=== PATIENT | male | born 1980 | race Caucasian/White ===

== ENCOUNTER 2024-02-15 15:06 | Inpatient (IN) | payer MEDICAID ==
[~2024-02-15] VITALS: Ht 175.2 cm; Wt 65.3 kg
[2024-02-15 15:21] VITALS: BP 109/80
[2024-02-15 15:49] LABS: HEMATOCRIT 40.7 % (42.0-52.0); MEAN CELL VOLUME 99.8 fl (80.0-94.0); MEAN CORPUSCULAR HGB 30.1 pg (27.0-31.0); MEAN CORPUSCULAR HGB CONC 30.2 g/dl (33.0-37.0); MEAN PLATELET VOLUME 9.5 fl (9.6-12.3); PLATELET COUNT AUTOMATED 272 10*3/uL (130-400); RED BLOOD COUNT 4.08 10*6/uL (4.50-5.90); RED CELL DISTRI WIDTH 16.4 % (0-14.5); WHITE BLOOD COUNT 21.1 10*3/uL (4.8-10.8)
[2024-02-15 15:52] LABS: MANUAL DIFF REFLEX YES
[2024-02-15 15:58] LABS: ACT PARTIAL THROMBO TIME 21.4 SECONDS (20.0-32.1)
[2024-02-15 16:00] LABS: ALKALINE PHOSPHATASE 288 U/L (46-116); BUN 39 mg/dl (9-23); CHLORIDE 96 mmol/L (98-107); SGPT/ALT 89 U/L (5-49); TOTAL PROTEIN 9.3 gm/dL (6.0-8.0)
[2024-02-15 16:17] LABS: PLATELET SUFFICIENCY NORMAL (NORMAL); TOTAL CELLS COUNTED 100 #CELLS
[2024-02-15 16:19] LABS: ROULEAUX SLIGHT
[2024-02-15 16:31] VITALS: BP 117/83
[2024-02-15] MEDS ORDERED: Lactated Ringer's Solution 1,000 ML IV ONE (16:50)
[2024-02-15] MEDS ORDERED: Ceftriaxone Sodium 1 GM/10 ML SYR IV ONE (16:50)
[2024-02-15] MEDS ORDERED: Vancomycin Hydrochloride 1,000 MG VIAL IV ONE (16:50)
[2024-02-15] MEDS ORDERED: Piperacillin Sodium/Tazobact 100 ML IV ONE (16:50)
[2024-02-15 17:00] LABS: BILIRUBIN Negative (Negative); BLOOD 3+ (Negative); CLARITY Cloudy (Clear); COLOR Yellow (Yellow); GLUCOSE Negative (Negative); KETONE Negative (Negative); LEUKO ESTERASE 2+ (Negative); NITRITE Negative (Negative); SPECIFIC GRAVITY 1.025 (1.001-1.030)
[2024-02-15] MEDS ORDERED: Vancomycin Hydrochloride 250 ML IV ONE (17:05)
[2024-02-15 17:13] LABS: BACTERIA 2+; RBC 41-50 rbc/hpf (0-2); WBC 31-40 wbc/hpf (0-5)
[2024-02-15] MEDS ORDERED: Albuterol Sulf/Ipratropium 3 ML VIAL NEB SCH (17:30)
[2024-02-15] MEDS ORDERED: MORPHINE Sulfate 2 MG/ML SYR IV PRN (17:30)
[2024-02-15] MEDS ORDERED: DEXTROSE 10 % IN WATER 250 ML IV PRN (17:40)
[2024-02-15] MEDS ORDERED: IBUPROFEN 100 MG/5 ML UDC PEG PRN ×2 (17:40→22:20)
[2024-02-15] MEDS ORDERED: Pantoprazole Sodium 40 MG VIAL IV SCH (17:45)
[2024-02-15] MEDS ORDERED: SODIUM CHLORIDE 0.9% 1,000 ML IV SCH (17:45)
[2024-02-15] MEDS ORDERED: LORazepam 0.5 MG TAB PO PRN (18:00)
[2024-02-15] MEDS ORDERED: Chlorhexidine Gluconate 15 ML MOUTHWASH T SCH (18:00)
[2024-02-15] MEDS ORDERED: Meropenem 1 GM in SODIUM CHLORIDE 0.9% 100 ML IV SCH (18:00)
[2024-02-15] MEDS ORDERED: TOPCARE PAIN R500 MG PEG (18:18)
[2024-02-15] MEDS ORDERED: VENTOLIN 02.5 MG/3 M NEB ×2 (18:21→18:25)
[2024-02-15] MEDS ORDERED: ASPIRIN ADULT L81 M1 PEG (18:25)
[2024-02-15] MEDS ORDERED: ATIVAN0.5 MG PEG (18:27)
[2024-02-15] MEDS ORDERED: BISACODYL10 MG R (18:33)
[2024-02-15] MEDS ORDERED: VIBRAMYCIN HYC100 MG PO (18:34)
[2024-02-15] MEDS ORDERED: ENOXAPARIN30 MG/0.2 SQ (18:34)
[2024-02-15] MEDS ORDERED: GOOD SENSE ACID20 MG PEG (18:36)
[2024-02-15] MEDS ORDERED: IBUPROFEN600 MG PO (18:37)
[2024-02-15] MEDS ORDERED: FLEET ENEMA EX230 M1 R (18:37)
[2024-02-15] MEDS ORDERED: JUVEN PACKET1 EACH PEG (18:38)
[2024-02-15] MEDS ORDERED: KEPPRA500 MG PEG (18:39)
[2024-02-15] MEDS ORDERED: MELATONIN3 MG PEG (18:40)
[2024-02-15] MEDS ORDERED: MILK OF MA400 MG/52 PEG (18:41)
[2024-02-15] MEDS ORDERED: MIRALAX17 GM PEG (18:42)
[2024-02-15] MEDS ORDERED: HYDROCODONE-AC1 EAC1 PEG (18:43)
[2024-02-15] MEDS ORDERED: Peridex 473 ML473 ML PO (18:51)
[2024-02-15] MEDS ORDERED: SENNA8.6 MG PEG (18:52)
[2024-02-15] MEDS ORDERED: SODIUM BICARBO650 MG PEG (18:54)
[2024-02-15 18:55] VITALS: BP 108/73
[2024-02-15] MEDS ORDERED: VIOKACE 10,4401 EACH PEG (18:55)
[2024-02-15] MEDS ORDERED: BISACODYL 10 MG SUPP R PRN (19:20)
[2024-02-15] MEDS ORDERED: Polyethylene Glycol 3350 17 GM PACKET PEG PRN (19:25)
[2024-02-15] MEDS ORDERED: SODIUM BICARBONATE 650 MG TAB PEG PRN (19:25)
[2024-02-15] MEDS ORDERED: Sennosides A and B 8.6 MG TAB PEG PRN (19:25)
[2024-02-15] MEDS ORDERED: Acetaminophen/Hydrocodone 5 MG/325 MG TABLET PO PRN (19:55)
[2024-02-15 20:00] VITALS: BP 99/64
[2024-02-15] MEDS ORDERED: AMYLASE/LIPASE/PROTEASE 12,000 UNITS CAP PO PRN (20:00)
[2024-02-15] MEDS ORDERED: LEVETIRACETAM 500 MG/5 ML UDC PEG SCH (22:00)
[2024-02-15] MEDS ORDERED: FAMOTIDINE 20 MG TAB PEG SCH (22:00)
[2024-02-15] MEDS ORDERED: JUVEN PEG SCH (22:00)
[2024-02-15] MEDS ORDERED: Melatonin 3 MG TABLET PEG SCH (22:00)
[2024-02-15] MEDS ORDERED: ACETAMINOPHEN 325 MG TAB PO ONE (22:20)
[2024-02-15] MEDS ORDERED: SODIUM CHLORIDE 0.9% 1,000 ML IV ONE (22:20)
[2024-02-15 23:13] LABS: BUN 35 mg/dl (9-23); CHLORIDE 100 mmol/L (98-107)
[2024-02-15 23:14] LABS: POTASSIUM 4.7 mmol/L (3.4-5.1)
[2024-02-16] VITALS: BP 106/72
[2024-02-16] MEDS ORDERED: INSULIN LISPRO 1 UNIT/0.01 ML SQ SCH
[2024-02-16 02:00] VITALS: BP 105/73
[2024-02-16] MEDS ORDERED: SODIUM CHLORIDE 0.9% 1,000 ML IV ONE (02:20)
[2024-02-16 04:00] VITALS: BP 97/58
[2024-02-16 05:37] LABS: ALKALINE PHOSPHATASE 214 U/L (46-116); BUN 32 mg/dl (9-23); CHLORIDE 102 mmol/L (98-107); CHOLESTEROL 85 mg/dL (<200); FREE T4 1.14 ng/dl (0.89-1.76); LDL CHOLESTEROL 36 mg/dL (9-159); POTASSIUM 4.3 mmol/L (3.4-5.1); SGPT/ALT 81 U/L (5-49); TOTAL PROTEIN 7.3 gm/dL (6.0-8.0); TRIGLYCERIDES 95 mg/dl (<150)
[2024-02-16 06:24] LABS: BASO % 0.2 % (0.0-1.0); EOS % 0.1 % (1.0-4.0); HEMATOCRIT 28.2 % (42.0-52.0); LYMPH # 0.7 10*3/uL (1.3-4.4); MEAN CELL VOLUME 98.9 fl (80.0-94.0); MEAN CORPUSCULAR HGB 30.2 pg (27.0-31.0); MEAN CORPUSCULAR HGB CONC 30.5 g/dl (33.0-37.0); MEAN PLATELET VOLUME 9.9 fl (9.6-12.3); MONO # 1.2 10*3/uL (0.1-1.0); MONO % 7.5 % (3.0-9.0); NEUT # 14.6 10*3/uL (2.3-7.9); NEUT % 87.7 % (47.0-73.0); PLATELET COUNT AUTOMATED 236 10*3/uL (130-400); RED BLOOD COUNT 2.85 10*6/uL (4.50-5.90); RED CELL DISTRI WIDTH 16.5 % (0-14.5); WHITE BLOOD COUNT 16.6 10*3/uL (4.8-10.8)
[2024-02-16 06:51] LABS: VITAMIN D, 25-HYDROXY 23.5 ng/mL (30-100)
[2024-02-16] MEDS ORDERED: SODIUM CHLORIDE 0.9% 100 ML BAG IV ONE (09:00)
[2024-02-16] MEDS ORDERED: IOHEXOL 350 MG/ML 100 ML VIAL IV ONE (09:00)
[2024-02-16] MEDS ORDERED: ASPIRIN, CHEWABLE 81 MG TAB PEG SCH (10:00)
[2024-02-16] MEDS ORDERED: Enoxaparin Sodium 80 MG/0.8 ML SYR SC SCH (10:00)
[2024-02-16] MEDS ORDERED: Enoxaparin Sodium 40 MG/0.4 ML SYR SC SCH (10:00)
[2024-02-16 10:46] LABS: ABG BASE EXCESS 0.1 mmol/L (-2.0-2.0); ARTERIAL BLOOD GAS PH 7.441 (7.35-7.45)
[2024-02-16 12:00] VITALS: BP 106/70
[2024-02-16 16:00] VITALS: BP 110/70
[2024-02-16 20:00] VITALS: BP 94/59
[2024-02-17] VITALS (8 sets, daily range): BP systolic 90–117; BP diastolic 50–75
[2024-02-17 05:24] LABS: ALKALINE PHOSPHATASE 201 U/L (46-116); BUN 21 mg/dl (9-23); CHLORIDE 102 mmol/L (98-107); POTASSIUM 3.8 mmol/L (3.4-5.1); SGPT/ALT 131 U/L (5-49); TOTAL PROTEIN 7.1 gm/dL (6.0-8.0)
[2024-02-17 06:11] LABS: BASO % 0.2 % (0.0-1.0); EOS # 0.1 10*3/uL (0.0-0.4); HEMATOCRIT 27.3 % (42.0-52.0); LYMPH # 0.9 10*3/uL (1.3-4.4); LYMPH % 9.3 % (27.0-41.0); MEAN CELL VOLUME 99.3 fl (80.0-94.0); MEAN CORPUSCULAR HGB 30.5 pg (27.0-31.0); MEAN CORPUSCULAR HGB CONC 30.8 g/dl (33.0-37.0); MEAN PLATELET VOLUME 10.2 fl (9.6-12.3); MONO % 10.9 % (3.0-9.0); NEUT # 7.3 10*3/uL (2.3-7.9); NEUT % 78.3 % (47.0-73.0); PLATELET COUNT AUTOMATED 217 10*3/uL (130-400); RED BLOOD COUNT 2.75 10*6/uL (4.50-5.90); RED CELL DISTRI WIDTH 16.4 % (0-14.5); WHITE BLOOD COUNT 9.4 10*3/uL (4.8-10.8)
[2024-02-17] MEDS ORDERED: MORPHINE Sulfate 2 MG/ML SYR IV SCH (08:00)
[2024-02-17 08:07] LABS: ABG BASE EXCESS 3.1 mmol/L (-2.0-2.0); ARTERIAL BLOOD GAS PH 7.448 (7.35-7.45)
[2024-02-17] MEDS ORDERED: ACETAMINOPHEN 500 MG TAB PEG PRN (09:40)
[2024-02-17] MEDS ORDERED: Enoxaparin Sodium 40 MG/0.4 ML SYR SC SCH (10:00)
[2024-02-17] MEDS ORDERED: Ceftriaxone Sodium 2 GM,IV 1 EA in SYRINGE INFUSION 20 ML IV SCH (10:00)
[2024-02-18] VITALS: BP 98/66
[2024-02-18 04:00] VITALS: BP 105/69
[2024-02-18 05:38] LABS: ALKALINE PHOSPHATASE 192 U/L (46-116); BUN 14 mg/dl (9-23); CHLORIDE 101 mmol/L (98-107); SGPT/ALT 170 U/L (5-49); TOTAL PROTEIN 7.2 gm/dL (6.0-8.0)
[2024-02-18 06:13] LABS: BASO % 0.1 % (0.0-1.0); RED CELL DISTRI WIDTH 16.4 % (0-14.5)
[2024-02-18 06:32] LABS: EOS # 0.2 10*3/uL (0.0-0.4); EOS % 1.8 % (1.0-4.0); HEMATOCRIT 28.1 % (42.0-52.0); LYMPH # 1.3 10*3/uL (1.3-4.4); LYMPH % 15.6 % (27.0-41.0); MEAN CORPUSCULAR HGB 30.6 pg (27.0-31.0); MEAN PLATELET VOLUME 10.5 fl (9.6-12.3); MONO # 1.2 10*3/uL (0.1-1.0); MONO % 14.3 % (3.0-9.0); NEUT # 5.6 10*3/uL (2.3-7.9); PLATELET COUNT AUTOMATED 229 10*3/uL (130-400); RED BLOOD COUNT 2.94 10*6/uL (4.50-5.90); WHITE BLOOD COUNT 8.3 10*3/uL (4.8-10.8)
[2024-02-18 06:36] LABS: MEAN CELL VOLUME 95.6 fl (80.0-94.0)
[2024-02-18 08:00] VITALS: BP 112/70
[2024-02-18] MEDS ORDERED: Chlorhexidine Gluconate 15 ML MOUTHWASH T SCH (10:00)
[2024-02-18] MEDS ORDERED: MORPHINE Sulfate 2 MG/ML SYR IV PRN (11:03)
[2024-02-18 12:00] VITALS: BP 94/61
[2024-02-18] MEDS ORDERED: Cefepime Hydrochloride 2 GM in SODIUM CHLORIDE 0.9% 50 ML IV SCH (14:00)
[2024-02-18 16:00] VITALS: BP 101/70
[2024-02-18] MEDS ORDERED: FOAM BANDAGE 1 EACH BANDAGE T ONE (16:11)
[2024-02-18] MEDS ORDERED: FOAM BANDAGE 4X4 T ONE (16:11)
[2024-02-18 20:00] VITALS: BP 106/72
[2024-02-19] VITALS (7 sets, daily range): BP systolic 100–125; BP diastolic 70–93
[2024-02-19 05:31] LABS: ALKALINE PHOSPHATASE 195 U/L (46-116); BUN 15 mg/dl (9-23); CHLORIDE 101 mmol/L (98-107); POTASSIUM 4.2 mmol/L (3.4-5.1); SGPT/ALT 165 U/L (5-49); TOTAL PROTEIN 7.7 gm/dL (6.0-8.0)
[2024-02-19 06:02] LABS: HEMATOCRIT 30.7 % (42.0-52.0); MEAN CELL VOLUME 97.2 fl (80.0-94.0); MEAN CORPUSCULAR HGB 30.4 pg (27.0-31.0); MEAN CORPUSCULAR HGB CONC 31.3 g/dl (33.0-37.0); MEAN PLATELET VOLUME 10.3 fl (9.6-12.3); PLATELET COUNT AUTOMATED 259 10*3/uL (130-400); RED BLOOD COUNT 3.16 10*6/uL (4.50-5.90); RED CELL DISTRI WIDTH 16.3 % (0-14.5); WHITE BLOOD COUNT 9.2 10*3/uL (4.8-10.8)
[2024-02-19 06:05] LABS: MANUAL DIFF REFLEX YES
[2024-02-19 06:40] LABS: ATYPICAL LYMPHS 1 % (0-0); BASOPHILS 1 % (0-1); PLATELET SUFFICIENCY NORMAL (NORMAL); TOTAL CELLS COUNTED 100 #CELLS
[2024-02-19 06:41] LABS: ROULEAUX SLIGHT
[2024-02-20] VITALS: BP 106/75
[2024-02-20 04:00] VITALS: BP 105/77
[2024-02-20 06:09] LABS: HEMATOCRIT 33.9 % (42.0-52.0); MEAN CELL VOLUME 97.1 fl (80.0-94.0); MEAN CORPUSCULAR HGB 30.4 pg (27.0-31.0); MEAN CORPUSCULAR HGB CONC 31.3 g/dl (33.0-37.0); PLATELET COUNT AUTOMATED 282 10*3/uL (130-400); RED BLOOD COUNT 3.49 10*6/uL (4.50-5.90); RED CELL DISTRI WIDTH 16.7 % (0-14.5)
[2024-02-20 06:21] LABS: MANUAL DIFF REFLEX YES
[2024-02-20 07:00] LABS: ATYPICAL LYMPHS 3 % (0-0); BASOPHILS 1 % (0-1); TOTAL CELLS COUNTED 100 #CELLS
[2024-02-20 07:01] LABS: PLATELET SUFFICIENCY NORMAL (NORMAL); POLYCHROMASIA SLIGHT; ROULEAUX SLIGHT
[2024-02-20 07:32] LABS: ALKALINE PHOSPHATASE 212 U/L (46-116); BUN 16 mg/dl (9-23); CHLORIDE 100 mmol/L (98-107); POTASSIUM 4.2 mmol/L (3.4-5.1); SGPT/ALT 139 U/L (5-49); TOTAL PROTEIN 8.2 gm/dL (6.0-8.0)
[2024-02-20] MEDS ORDERED: Polyethylene Glycol 3350 17 GM PACKET PEG SCH (10:00)
[2024-02-20] MEDS ORDERED: LEVOFLOXACIN 750 MG TAB PO SCH (10:00)
[2024-02-20 12:00] VITALS: BP 115/77
[2024-02-20 16:00] VITALS: BP 112/81
[2024-02-20 20:00] VITALS: BP 121/78
[2024-02-21] VITALS: BP 104/73
[2024-02-21 04:00] VITALS: BP 107/76
[2024-02-21 07:03] LABS: HEMATOCRIT 34.5 % (42.0-52.0); MEAN CORPUSCULAR HGB 30.4 pg (27.0-31.0); MEAN PLATELET VOLUME 10.2 fl (9.6-12.3); PLATELET COUNT AUTOMATED 313 10*3/uL (130-400); RED BLOOD COUNT 3.52 10*6/uL (4.50-5.90); RED CELL DISTRI WIDTH 16.7 % (0-14.5); WHITE BLOOD COUNT 11.3 10*3/uL (4.8-10.8)
[2024-02-21 07:04] LABS: MANUAL DIFF REFLEX YES
[2024-02-21 07:09] LABS: ALKALINE PHOSPHATASE 193 U/L (46-116); BUN 11 mg/dl (9-23); CHLORIDE 102 mmol/L (98-107); POTASSIUM 4.7 mmol/L (3.4-5.1); SGPT/ALT 99 U/L (5-49); TOTAL PROTEIN 7.8 gm/dL (6.0-8.0)
[2024-02-21 07:38] LABS: PLATELET SUFFICIENCY NORMAL (NORMAL); POLYCHROMASIA SLIGHT; ROULEAUX SLIGHT; TOTAL CELLS COUNTED 100 #CELLS
[2024-02-21 08:00] VITALS: BP 107/65
[2024-02-21] MEDS ORDERED: HYDROCODONE-AC1 EAC1 PEG (10:31)
[2024-02-21] MEDS ORDERED: LEVOFLOXACIN750 M2 PO (10:31)
[2024-02-21] MEDS ORDERED: ATIVAN0.5 MG PEG (10:31)
== END 2024-02-21 11:47 | DRG 870 ==
LOC: ED 15:06 → ICCU 17:00 → EDHOLD 17:00 → ICCU 18:07
PROVIDERS: Emergency Medicine; Family Medicine; Internal Medicine; Student in an Organized Health Care Education/Training Program; ADMIT Internal Medicine; ATTEND Internal Medicine
PROC: 5A1955Z Respiratory Ventilation, Greater than 96 Consecutive Hours (ICD-10-PCS; principal; 2024-02-15)
DX: A41.59 Other Gram-negative sepsis (principal); J18.9 Pneumonia, unspecified organism; G82.50 Quadriplegia, unspecified; J96.21 Acute and chronic respiratory failure with hypoxia; T83.511A Infection and inflammatory reaction due to indwelling urethral catheter, initial encounter; J95.851 Ventilator associated pneumonia; E87.1 Hypo-osmolality and hyponatremia; R65.20 Severe sepsis without septic shock; Y84.8 Other medical procedures as the cause of abnormal reaction of the patient, or of later complication, without mention of misadventure at the time of the procedure; E87.5 Hyperkalemia; D72.9 Disorder of white blood cells, unspecified; D53.9 Nutritional anemia, unspecified; R31.9 Hematuria, unspecified; L89.150 Pressure ulcer of sacral region, unstageable; D50.9 Iron deficiency anemia, unspecified; R74.01 Elevation of levels of liver transaminase levels; T07.XXXA Unspecified multiple injuries, initial encounter; R73.9 Hyperglycemia, unspecified; Z87.820 Personal history of traumatic brain injury; Z93.0 Tracheostomy status; Y92.89 Other specified places as the place of occurrence of the external cause; X58.XXXA Exposure to other specified factors, initial encounter; Y93.89 Activity, other specified; Y99.8 Other external cause status

== ENCOUNTER → 2024-02-29 | Outpatient (CLI) | payer MEDICAID ==
[~2024-02-29] MED LIST: ASPIRIN ADULT L81 M1 PEG; ATIVAN0.5 MG PEG; BISACODYL10 MG R; ENOXAPARIN30 MG/0.2 SQ; FLEET ENEMA EX230 M1 R; GOOD SENSE ACID20 MG PEG; HYDROCODONE-AC1 EAC1 PEG; IBUPROFEN600 MG PO; JUVEN PACKET1 EACH PEG; KEPPRA500 MG PEG; LEVOFLOXACIN750 M2 PO; MELATONIN3 MG PEG; MILK OF MA400 MG/52 PEG; MIRALAX17 GM PEG; Peridex 473 ML473 ML PO; SENNA8.6 MG PEG; SODIUM BICARBO650 MG PEG; TOPCARE PAIN R500 MG PEG; VENTOLIN 02.5 MG/3 M NEB; VIBRAMYCIN HYC100 MG PO; VIOKACE 10,4401 EACH PEG
== END ==
LOC: CT 00:28
PROVIDERS: ATTEND Neurological Surgery
DX: S06.6XAD Traumatic subarachnoid hemorrhage with loss of consciousness status unknown, subsequent encounter (principal); S22.49XD Multiple fractures of ribs, unspecified side, subsequent encounter for fracture with routine healing; Z98.1 Arthrodesis status; M43.24 Fusion of spine, thoracic region; X58.XXXD Exposure to other specified factors, subsequent encounter

== ENCOUNTER → 2024-03-22 | Outpatient (CLI) | payer OTHER ==
[~2024-03-22] MED LIST changes: +IOHEXOL 350 MG/ML 100 ML VIAL IV ONE; +SODIUM CHLORIDE 0.9% 100 ML BAG IV ONE; +SODIUM CHLORIDE 0.9% 100 ML IV ONE
== END ==
LOC: CT 13:00
PROVIDERS: ATTEND Neurological Surgery
DX: S22.32XG Fracture of one rib, left side, subsequent encounter for fracture with delayed healing (principal); S12.9XXD Fracture of neck, unspecified, subsequent encounter; R93.89 Abnormal findings on diagnostic imaging of other specified body structures; X58.XXXD Exposure to other specified factors, subsequent encounter

== ENCOUNTER 2024-11-10 14:01 | Inpatient (IN) | payer OTHER ==
[~2024-11-10] VITALS: Ht 177.8 cm; Wt 69.1 kg
[~2024-11-10 14:01] MED LIST changes: +AMOXICILLIN500 M3 PO; +BUSPIRONE HCL10 MG PEG; +ENOXAPARIN40 MG/0.2 SC; +FLUCONAZOLE100 MG PO; -IOHEXOL 350 MG/ML 100 ML VIAL IV ONE; +METRONIDAZOLE500 M1 PO; +PROBIOTIC1 EAC7 PO; +SANTYL30 GM T; +SEPTDS PO; -SODIUM CHLORIDE 0.9% 100 ML BAG IV ONE; -SODIUM CHLORIDE 0.9% 100 ML IV ONE; +TRANSDERM-SCOP1 EAC1 TD; +VISTARIL25 MG PEG; +ZOSYN 4.54.5 GM/100 IV; +[UNRECOGNIZED DRUG - OTHER] PO
[2024-11-10 14:07] VITALS: BP 95/65
[2024-11-10] MEDS ORDERED: ELIQUIS5 M1 PEG (14:41)
[2024-11-10] MEDS ORDERED: CARDIZEM60 MG PEG (14:43)
[2024-11-10] MEDS ORDERED: CLARITIN10 MG PEG (14:43)
[2024-11-10 14:45] LABS: BASO % 0.3 % (0.0-1.0); EOS # 0.2 10*3/uL (0.0-0.4); EOS % 2.5 % (1.0-4.0); HEMATOCRIT 32.1 % (42.0-52.0); MEAN CORPUSCULAR HGB 28.4 pg (27.0-31.0); MEAN CORPUSCULAR HGB CONC 30.5 g/dl (33.0-37.0); MEAN PLATELET VOLUME 8.9 fl (9.6-12.3); MONO # 0.4 10*3/uL (0.1-1.0); MONO % 3.9 % (3.0-9.0); NEUT # 6.8 10*3/uL (2.3-7.9); NEUT % 76.1 % (47.0-73.0); PLATELET COUNT AUTOMATED 472 10*3/uL (130-400); RED BLOOD COUNT 3.45 10*6/uL (4.50-5.90); RED CELL DISTRI WIDTH 16.4 % (0-14.5); WHITE BLOOD COUNT 8.9 10*3/uL (4.8-10.8)
[2024-11-10] MEDS ORDERED: FENTANYL1 EAC5 TD (14:45)
[2024-11-10] MEDS ORDERED: FEOSOL,FER300 MG/5 M PEG (14:47)
[2024-11-10] MEDS ORDERED: ADULT TUSS100 MG/51 PEG (14:49)
[2024-11-10] MEDS ORDERED: METOPROLOL TART50 M1 PEG (14:51)
[2024-11-10] MEDS ORDERED: OXYBUTYNIN5 MG PEG (14:52)
[2024-11-10] MEDS ORDERED: OXYCODONE HCL5 MG PEG (14:53)
[2024-11-10] MEDS ORDERED: PANTOPRAZOLE SO40 M2 PEG (14:55)
[2024-11-10] MEDS ORDERED: K-LOR 20MEQ20 ME1 PEG (14:56)
[2024-11-10] MEDS ORDERED: RISPERDAL0.5 MG PEG (14:57)
[2024-11-10 15:19] LABS: BUN 13 mg/dl (9-23); CHLORIDE 107 mmol/L (98-107); POTASSIUM 4.9 mmol/L (3.4-5.1)
[2024-11-10] MEDS ORDERED: Piperacillin Sodium/Tazobact 50 ML IV ONE (15:30)
[2024-11-10] MEDS ORDERED: Vancomycin Hydrochloride 250 ML IV ONE (15:30)
[2024-11-10] MEDS ORDERED: ACETAMINOPHEN 650 MG SUPP R PRN (16:25)
[2024-11-10] MEDS ORDERED: BISACODYL 5 MG TAB PO PRN (16:25)
[2024-11-10] MEDS ORDERED: BISACODYL 10 MG SUPP R PRN (16:25)
[2024-11-10] MEDS ORDERED: MORPHINE Sulfate 2 MG/ML SYR IV PRN (16:25)
[2024-11-10] MEDS ORDERED: ACETAMINOPHEN 325 MG TAB PO PRN (16:25)
[2024-11-10] MEDS ORDERED: Ondansetron Hydrochloride 4 MG/2 ML VIAL IV PRN (16:25)
[2024-11-10] MEDS ORDERED: Magnesium Hydroxide 30 ML UDC PO PRN (16:25)
[2024-11-10] MEDS ORDERED: LEVOFLOXACIN 750 MG TAB PO SCH (17:05)
[2024-11-10] MEDS ORDERED: OXYCODONE HCL (IR) 5 MG TAB PEG PRN (17:15)
[2024-11-10] MEDS ORDERED: Albuterol Sulfate 2.5 MG/3 ML VIAL NEB PRN (17:20)
[2024-11-10] MEDS ORDERED: DILTIAZEM HYDROCHLORIDE PEG SCH (18:00)
[2024-11-10] MEDS ORDERED: Piperacillin Sodium/Tazobact 50 ML IV SCH (18:00)
[2024-11-10] MEDS ORDERED: hydrOXYzine pamoate 25 MG CAP PEG SCH (18:00)
[2024-11-10] MEDS ORDERED: Piperacillin Sodium/Tazobact 2.25 GM in SODIUM CHLORIDE 0.9% 50 ML IV SCH (18:00)
[2024-11-10 19:46] LABS: BILIRUBIN Negative (Negative); BLOOD Trace-Lysed (Negative); CLARITY Cloudy (Clear); COLOR Yellow (Yellow); GLUCOSE Negative (Negative); KETONE Negative (Negative); LEUKO ESTERASE 3+ (Negative); NITRITE Negative (Negative); SPECIFIC GRAVITY 1.015 (1.001-1.030); UROBILINOGEN 0.2 E.U./dl (0.0-1.0)
[2024-11-10 19:57] LABS: BACTERIA 1+; WBC TNTC wbc/hpf (0-5); YEAST 2+
[2024-11-10] MEDS ORDERED: Vancomycin Hydrochloride 1,000 MG in SODIUM CHLORIDE 0.9% 250 ML IV SCH (20:00)
[2024-11-10] MEDS ORDERED: fentaNYL 50 MCG PATCH T SCH (21:00)
[2024-11-10 21:59] VITALS: BP 103/74
[2024-11-10] MEDS ORDERED: busPIRone Hydrochloride 10 MG TAB PEG SCH (22:00)
[2024-11-10] MEDS ORDERED: Oxybutynin Chloride 5 MG TAB PEG SCH (22:00)
[2024-11-10] MEDS ORDERED: APIXABAN 5 MG TAB PEG SCH (22:00)
[2024-11-10] MEDS ORDERED: LEVETIRACETAM 500 MG/5 ML UDC PEG SCH (22:00)
[2024-11-10] MEDS ORDERED: Metoprolol Tartrate 50 MG TAB PEG SCH (22:00)
[2024-11-10] MEDS ORDERED: risperiDONE 0.5 MG ODT PEG SCH (22:00)
[2024-11-11] VITALS (16 sets, daily range): BP systolic 77–103; BP diastolic 36–76
[2024-11-11] MEDS ORDERED: Piperacillin Sodium/Tazobact 50 ML IV SCH
[2024-11-11 05:14] LABS: ALKALINE PHOSPHATASE 198 U/L (46-116); BUN 11 mg/dl (9-23); CHLORIDE 107 mmol/L (98-107); CHOLESTEROL 86 mg/dL (<200); LDL CHOLESTEROL 42 mg/dL (9-159); POTASSIUM 4.1 mmol/L (3.4-5.1); SGPT/ALT 74 U/L (5-49); TOTAL PROTEIN 8.5 gm/dL (6.0-8.0); TRIGLYCERIDES 117 mg/dl (<150)
[2024-11-11] MEDS ORDERED: Pantoprazole Sodium 40 MG TAB PO SCH (06:00)
[2024-11-11 06:15] LABS: BASO % 0.4 % (0.0-1.0); EOS # 0.2 10*3/uL (0.0-0.4); EOS % 1.5 % (1.0-4.0); HEMATOCRIT 31.5 % (42.0-52.0); MEAN CELL VOLUME 93.5 fl (80.0-94.0); MEAN CORPUSCULAR HGB 28.8 pg (27.0-31.0); MEAN CORPUSCULAR HGB CONC 30.8 g/dl (33.0-37.0); MEAN PLATELET VOLUME 9.5 fl (9.6-12.3); MONO # 0.6 10*3/uL (0.1-1.0); MONO % 5.3 % (3.0-9.0); NEUT # 7.7 10*3/uL (2.3-7.9); NEUT % 74.3 % (47.0-73.0); PLATELET COUNT AUTOMATED 550 10*3/uL (130-400); RED BLOOD COUNT 3.37 10*6/uL (4.50-5.90); RED CELL DISTRI WIDTH 16.2 % (0-14.5); WHITE BLOOD COUNT 10.4 10*3/uL (4.8-10.8)
[2024-11-11] MEDS ORDERED: Midodrine Hydrochloride 5 MG TAB PO ONE (06:30)
[2024-11-11 06:38] LABS: VITAMIN D, 25-HYDROXY 37.9 ng/mL (30-100)
[2024-11-11] MEDS ORDERED: Enoxaparin Sodium 40 MG/0.4 ML SYR SC SCH (10:00)
[2024-11-11] MEDS ORDERED: Midodrine Hydrochloride 5 MG TAB PO SCH (16:00)
[2024-11-12] VITALS (8 sets, daily range): BP systolic 93–114; BP diastolic 57–74
[2024-11-12 05:34] LABS: ALKALINE PHOSPHATASE 210 U/L (46-116); BUN 10 mg/dl (9-23); CHLORIDE 108 mmol/L (98-107); POTASSIUM 4.1 mmol/L (3.4-5.1); SGPT/ALT 55 U/L (5-49); TOTAL PROTEIN 8.2 gm/dL (6.0-8.0)
[2024-11-12 06:10] LABS: BASO % 0.2 % (0.0-1.0); EOS # 0.3 10*3/uL (0.0-0.4); EOS % 3.7 % (1.0-4.0); HEMATOCRIT 27.8 % (42.0-52.0); MEAN CELL VOLUME 94.6 fl (80.0-94.0); MEAN CORPUSCULAR HGB 29.3 pg (27.0-31.0); MEAN CORPUSCULAR HGB CONC 30.9 g/dl (33.0-37.0); MEAN PLATELET VOLUME 9.1 fl (9.6-12.3); MONO # 0.6 10*3/uL (0.1-1.0); MONO % 6.8 % (3.0-9.0); NEUT # 6.5 10*3/uL (2.3-7.9); NEUT % 71.5 % (47.0-73.0); PLATELET COUNT AUTOMATED 488 10*3/uL (130-400); RED BLOOD COUNT 2.94 10*6/uL (4.50-5.90); RED CELL DISTRI WIDTH 16.5 % (0-14.5)
== END 2024-11-13 01:37 | disposition short-term general hospital (02) | DRG 208 ==
LOC: ED 14:01 → EDHOLD 15:34
PROVIDERS: Emergency Medicine; ADMIT Internal Medicine; ATTEND Internal Medicine
PROC: 5A1945Z Respiratory Ventilation, 24-96 Consecutive Hours (ICD-10-PCS; principal; 2024-11-10)
DX: J15.69 Pneumonia due to other Gram-negative bacteria (principal); I60.9 Nontraumatic subarachnoid hemorrhage, unspecified; J95.851 Ventilator associated pneumonia; D64.9 Anemia, unspecified; R73.9 Hyperglycemia, unspecified; F41.1 Generalized anxiety disorder; R56.9 Unspecified convulsions; Z93.1 Gastrostomy status; Z93.3 Colostomy status; Z74.01 Bed confinement status; Z79.899 Other long term (current) drug therapy; Z93.0 Tracheostomy status

== ENCOUNTER 2024-11-23 19:36 | Emergency (ER) | payer OTHER ==
[~2024-11-23] VITALS: Wt 74.7 kg
[~2024-11-23 19:36] MED LIST changes: +ADULT TUSS100 MG/51 PEG; +CARDIZEM60 MG PEG; +CLARITIN10 MG PEG; +ELIQUIS5 M1 PEG; +FENTANYL1 EAC5 TD; +FEOSOL,FER300 MG/5 M PEG; +K-LOR 20MEQ20 ME1 PEG; +METOPROLOL TART50 M1 PEG; +OXYBUTYNIN5 MG PEG; +OXYCODONE HCL5 MG PEG; +PANTOPRAZOLE SO40 M2 PEG; +RISPERDAL0.5 MG PEG
== END 2024-11-23 23:38 ==
LOC: ED 19:36
DX: S00.93XA Contusion of unspecified part of head, initial encounter (principal); R00.0 Tachycardia, unspecified; Z79.899 Other long term (current) drug therapy; Z98.890 Other specified postprocedural states; W06.XXXA Fall from bed, initial encounter; Y93.89 Activity, other specified; Y92.128 Other place in nursing home as the place of occurrence of the external cause; Y99.8 Other external cause status

== ENCOUNTER 2025-01-01 15:04 | Emergency (ER) | payer OTHER ==
[~2025-01-01] VITALS: Wt 63.5 kg
[~2025-01-01 15:04] MED LIST changes: +CYMBALTA20 M1 PO; +FENTANYL1 EAC3 TD; -FENTANYL1 EAC5 TD
== END 2025-01-01 17:11 ==
LOC: ED 15:04
DX: S00.93XA Contusion of unspecified part of head, initial encounter (principal); Z79.899 Other long term (current) drug therapy; Z98.890 Other specified postprocedural states; W06.XXXA Fall from bed, initial encounter; Y93.89 Activity, other specified; Y92.128 Other place in nursing home as the place of occurrence of the external cause; Y99.8 Other external cause status

== ENCOUNTER → 2025-01-03 | Outpatient (CLI) | payer OTHER ==
[~2025-01-03] MED LIST changes: +BARIUM SULFATE 98% 340 GM BOT PO ONE
== END | disposition home or self-care (01) ==
LOC: RAD/SH 12:45
PROVIDERS: ATTEND Internal Medicine
DX: R13.12 Dysphagia, oropharyngeal phase (principal)

== ENCOUNTER 2025-01-06 18:01 | Inpatient (IN) | payer OTHER ==
[~2025-01-06] VITALS: Ht 177.8 cm; Wt 69.4 kg
[~2025-01-06 18:01] MED LIST changes: -BARIUM SULFATE 98% 340 GM BOT PO ONE
[2025-01-06 18:13] VITALS: BP 125/67
[2025-01-06 19:16] LABS: BASO % 0.1 % (0.0-1.0); EOS # 0.1 10*3/uL (0.0-0.4); EOS % 0.7 % (1.0-4.0); HEMATOCRIT 30.9 % (42.0-52.0); MEAN CELL VOLUME 96.9 fl (80.0-94.0); MEAN CORPUSCULAR HGB 29.5 pg (27.0-31.0); MEAN CORPUSCULAR HGB CONC 30.4 g/dl (33.0-37.0); MEAN PLATELET VOLUME 11.5 fl (9.6-12.3); MONO # 0.6 10*3/uL (0.1-1.0); MONO % 5.3 % (3.0-9.0); NEUT # 10.9 10*3/uL (2.3-7.9); NEUT % 89.8 % (47.0-73.0); RED BLOOD COUNT 3.19 10*6/uL (4.50-5.90); RED CELL DISTRI WIDTH 18.6 % (0-14.5); WHITE BLOOD COUNT 12.2 10*3/uL (4.8-10.8)
[2025-01-06 19:16] LABS: ABG BASE EXCESS -1.4 mmol/L (-2.0-3.0); ABG O2 SATURATION 97.7 % (94.0-98.0); ARTERIAL BLOOD GAS PH 7.358 (7.350-7.450)
[2025-01-06 19:17] LABS: PLATELET COUNT AUTOMATED 240 10*3/uL (130-400)
[2025-01-06] MEDS ORDERED: SODIUM CHLORIDE 0.9% 1,000 ML IV SCH (19:25)
[2025-01-06 19:26] LABS: BUN 29 mg/dl (9-23); CHLORIDE 104 mmol/L (98-107); POTASSIUM 5.8 mmol/L (3.4-5.1)
[2025-01-06] MEDS ORDERED: DEXTROSE 50% 25 GM/50 ML SYR IV ONE (19:40)
[2025-01-06] MEDS ORDERED: Albuterol Sulfate 2.5 MG/3 ML VIAL NEB ONE (19:40)
[2025-01-06] MEDS ORDERED: INSULIN REGULAR, HUMAN 1 UNIT/0.01 ML IV ONE (19:40)
[2025-01-06 20:00] VITALS: BP 103/76
[2025-01-06] MEDS ORDERED: Piperacillin Sodium/Tazobact 50 ML IV ONE (22:05)
[2025-01-06 23:02] VITALS: BP 103/50
[2025-01-06] MEDS ORDERED: Ondansetron Hydrochloride 4 MG/2 ML VIAL IV PRN (23:30)
[2025-01-06] MEDS ORDERED: MORPHINE Sulfate 2 MG/ML SYR IV PRN (23:30)
[2025-01-06] MEDS ORDERED: VANCOMYCIN HCL 1,500 MG in SODIUM CHLORIDE 0.9% 500 ML IV ONE (23:55)
[2025-01-07] VITALS: BP 100/50
[2025-01-07] MEDS ORDERED: FOAM BANDAGE 1 EACH BANDAGE T ONE (03:16)
[2025-01-07 04:00] VITALS: BP 101/62
[2025-01-07 06:38] LABS: HEMATOCRIT 23.6 % (42.0-52.0); MEAN CELL VOLUME 97.1 fl (80.0-94.0); MEAN CORPUSCULAR HGB 28.8 pg (27.0-31.0); MEAN CORPUSCULAR HGB CONC 29.7 g/dl (33.0-37.0); MEAN PLATELET VOLUME 11.2 fl (9.6-12.3); PLATELET COUNT AUTOMATED 217 10*3/uL (130-400); RED BLOOD COUNT 2.43 10*6/uL (4.50-5.90); RED CELL DISTRI WIDTH 18.8 % (0-14.5); WHITE BLOOD COUNT 12.8 10*3/uL (4.8-10.8)
[2025-01-07 06:40] LABS: MANUAL DIFF REFLEX YES
[2025-01-07 07:08] LABS: ATYPICAL LYMPHS 1 % (0-0); PLATELET SUFFICIENCY NORMAL (NORMAL); TOTAL CELLS COUNTED 100 #CELLS
[2025-01-07 07:09] LABS: ALKALINE PHOSPHATASE 136 U/L (46-116); BUN 20 mg/dl (9-23); CHLORIDE 106 mmol/L (98-107); OVALOCYTES FEW; POLYCHROMASIA SLIGHT; ROULEAUX SLIGHT; SGPT/ALT 77 U/L (5-49); STOMATOCYTE FEW; TARGET CELLS FEW; TOTAL PROTEIN 7.3 gm/dL (6.0-8.0)
[2025-01-07 07:16] LABS: POTASSIUM 4.6 mmol/L (3.4-5.1)
[2025-01-07 08:00] VITALS: BP 90/55
[2025-01-07] MEDS ORDERED: Piperacillin Sodium/Tazobact 50 ML IV SCH (08:00)
[2025-01-07] MEDS ORDERED: SODIUM CHLORIDE 0.9% 500 ML IV ONE (09:25)
[2025-01-07] MEDS ORDERED: Albuterol Sulfate 2.5 MG/3 ML VIAL NEB PRN (09:50)
[2025-01-07] MEDS ORDERED: Enoxaparin Sodium 40 MG/0.4 ML SYR SC SCH (10:00)
[2025-01-07] MEDS ORDERED: risperiDONE 0.25 MG TAB PO SCH (10:00)
[2025-01-07] MEDS ORDERED: Vancomycin Hydrochloride 1,000 MG in SODIUM CHLORIDE 0.9% 250 ML IV SCH ×2 (10:00→16:00)
[2025-01-07] MEDS ORDERED: LEVETIRACETAM 500 MG TAB PO SCH (10:00)
[2025-01-07] MEDS ORDERED: Oxybutynin Chloride 5 MG TAB PEG SCH (10:00)
[2025-01-07] MEDS ORDERED: busPIRone Hydrochloride 10 MG TAB PEG SCH (10:00)
[2025-01-07] MEDS ORDERED: Pantoprazole Sodium 40 MG PKT PEG SCH (10:00)
[2025-01-07] MEDS ORDERED: POTASSIUM CHLORIDE 20 MEQ TAB PO SCH (10:00)
[2025-01-07] MEDS ORDERED: DULOXETINE HYDROCHLORIDE 20 MG PO SCH (10:00)
[2025-01-07] MEDS ORDERED: POTASSIUM CHLORIDE 20 MEQ TAB PEG SCH (10:07)
[2025-01-07] MEDS ORDERED: LEVETIRACETAM 500 MG/5 ML UDC PEG SCH (10:07)
[2025-01-07] MEDS ORDERED: risperiDONE 0.25 MG TAB PEG SCH (10:08)
[2025-01-07] MEDS ORDERED: DULOXETINE HYDROCHLORIDE 20 MG PEG SCH (10:09)
[2025-01-07 12:00] VITALS: BP 91/58
[2025-01-07] MEDS ORDERED: hydrOXYzine pamoate 25 MG CAP PEG SCH (12:00)
[2025-01-07 16:00] VITALS: BP 100/66
[2025-01-07] MEDS ORDERED: Melatonin 5 MG TABLET PEG PRN (19:35)
[2025-01-07 20:00] VITALS: BP 99/70
[2025-01-07] MEDS ORDERED: Ketorolac Tromethamine 30 MG/ML VIAL IV ONE (20:10)
[2025-01-07] MEDS ORDERED: Midazolam Hydrochloride 2 MG/2 ML VIAL IV ONE (21:25)
[2025-01-07] MEDS ORDERED: FOAM BANDAGE HEEL T ONE (23:31)
[2025-01-08] VITALS (8 sets, daily range): BP systolic 102–123; BP diastolic 42–84
[2025-01-08 06:11] LABS: MEAN CELL VOLUME 94.8 fl (80.0-94.0); MEAN CORPUSCULAR HGB 28.3 pg (27.0-31.0); MEAN CORPUSCULAR HGB CONC 29.9 g/dl (33.0-37.0); MEAN PLATELET VOLUME 11.2 fl (9.6-12.3); PLATELET COUNT AUTOMATED 261 10*3/uL (130-400); RED BLOOD COUNT 2.12 10*6/uL (4.50-5.90); WHITE BLOOD COUNT 13.3 10*3/uL (4.8-10.8)
[2025-01-08 06:27] LABS: HEMATOCRIT 20.1 % (42.0-52.0); MANUAL DIFF REFLEX YES
[2025-01-08 07:10] LABS: PLATELET SUFFICIENCY NORMAL (NORMAL); TOTAL CELLS COUNTED 100 #CELLS
[2025-01-08 08:33] LABS: BILIRUBIN Negative (Negative); BLOOD Negative (Negative); CLARITY Clear (Clear); COLOR Yellow (Yellow); GLUCOSE Negative (Negative); KETONE Negative (Negative); LEUKO ESTERASE 1+ (Negative); NITRITE Negative (Negative); UROBILINOGEN 0.2 E.U./dl (0.0-1.0)
[2025-01-08] MEDS ORDERED: SODIUM CHLORIDE 0.9% 500 ML IV ONE (08:33)
[2025-01-08 10:26] LABS: BACTERIA 2+; YEAST 2+
[2025-01-08 13:28] LABS: ABG BASE EXCESS 2.2 mmol/L (-2.0-3.0); ABG O2 SATURATION 98.4 % (94.0-98.0); ARTERIAL BLOOD GAS PH 7.438 (7.350-7.450); ARTERIAL BLOOD GAS PO2 120.6 mmHg (83.0-108.0)
[2025-01-08] MEDS ORDERED: metroNIDAZOLE 500 MG TAB PEG SCH (14:00)
[2025-01-08] MEDS ORDERED: FOAM BANDAGE 1 EACH BANDAGE T ONE (14:34)
[2025-01-08] MEDS ORDERED: FOAM BANDAGE HEEL T ONE ×2 (14:35)
[2025-01-08 15:46] LABS: BASO % 0.1 % (0.0-1.0); EOS # 0.2 10*3/uL (0.0-0.4); EOS % 1.6 % (1.0-4.0); HEMATOCRIT 27.3 % (42.0-52.0); MEAN CORPUSCULAR HGB 29.1 pg (27.0-31.0); MEAN CORPUSCULAR HGB CONC 31.5 g/dl (33.0-37.0); MONO # 0.8 10*3/uL (0.1-1.0); MONO % 5.5 % (3.0-9.0); PLATELET COUNT AUTOMATED 301 10*3/uL (130-400); RED BLOOD COUNT 2.96 10*6/uL (4.50-5.90); WHITE BLOOD COUNT 14.5 10*3/uL (4.8-10.8)
[2025-01-08 15:52] LABS: MEAN CELL VOLUME 92.2 fl (80.0-94.0)
[2025-01-08] MEDS ORDERED: diazePAM 10 MG/2 ML SYR IV PRN (17:35)
[2025-01-09] VITALS: BP 99/75
[2025-01-09 04:00] VITALS: BP 112/77
[2025-01-09 06:03] LABS: BASO # 0.1 10*3/uL (0.0-0.1); BASO % 0.4 % (0.0-1.0); EOS # 0.3 10*3/uL (0.0-0.4); EOS % 2.5 % (1.0-4.0); MEAN CELL VOLUME 91.8 fl (80.0-94.0); MEAN CORPUSCULAR HGB 28.9 pg (27.0-31.0); MEAN CORPUSCULAR HGB CONC 31.5 g/dl (33.0-37.0); MONO # 1.1 10*3/uL (0.1-1.0); MONO % 8.1 % (3.0-9.0); NEUT # 9.7 10*3/uL (2.3-7.9); NEUT % 73.2 % (47.0-73.0); PLATELET COUNT AUTOMATED 324 10*3/uL (130-400); RED BLOOD COUNT 2.94 10*6/uL (4.50-5.90); RED CELL DISTRI WIDTH 19.4 % (0-14.5); WHITE BLOOD COUNT 13.2 10*3/uL (4.8-10.8)
[2025-01-09 08:00] VITALS: BP 135/83
[2025-01-09] MEDS ORDERED: Ertapenem Sodium 1 GM in SODIUM CHLORIDE 0.9% 50 ML IV ONE (08:00)
[2025-01-09] MEDS ORDERED: Sodium Hypochlorite 0.125% (1/4 STRENGTH DAKIN'S) 480 ML SOL T SCH (10:00)
[2025-01-09 12:00] VITALS: BP 110/76
[2025-01-09 16:00] VITALS: BP 103/74
[2025-01-09 20:00] VITALS: BP 103/80
[2025-01-10 04:00] VITALS: BP 121/82
[2025-01-10 06:27] LABS: BASO % 0.3 % (0.0-1.0); EOS # 0.3 10*3/uL (0.0-0.4); EOS % 2.1 % (1.0-4.0); HEMATOCRIT 26.5 % (42.0-52.0); MEAN CELL VOLUME 93.3 fl (80.0-94.0); MEAN CORPUSCULAR HGB 28.9 pg (27.0-31.0); MEAN CORPUSCULAR HGB CONC 30.9 g/dl (33.0-37.0); MEAN PLATELET VOLUME 10.8 fl (9.6-12.3); MONO % 7.9 % (3.0-9.0); NEUT # 8.9 10*3/uL (2.3-7.9); NUCLEATED RED BLOOD CELL 0.2 % (0.0-0.0); PLATELET COUNT AUTOMATED 376 10*3/uL (130-400); RED BLOOD COUNT 2.84 10*6/uL (4.50-5.90); RED CELL DISTRI WIDTH 18.8 % (0-14.5); WHITE BLOOD COUNT 12.1 10*3/uL (4.8-10.8)
[2025-01-10 08:00] VITALS: BP 103/76
[2025-01-10] MEDS ORDERED: busPIRone Hydrochloride 10 MG TAB PEG SCH (08:00)
[2025-01-10] MEDS ORDERED: OXYCODONE HCL (IR) 5 MG TAB PEG PRN (10:40)
[2025-01-10] MEDS ORDERED: fentaNYL 25 MCG PATCH T SCH (10:45)
[2025-01-10 12:00] VITALS: BP 116/85
[2025-01-10] MEDS ORDERED: Enoxaparin Sodium 40 MG/0.4 ML SYR SC SCH (12:35)
[2025-01-10 16:00] VITALS: BP 104/79
[2025-01-10 20:00] VITALS: BP 110/60
[2025-01-10] MEDS ORDERED: Midazolam Hydrochloride 2 MG/2 ML VIAL IV ONE (22:10)
[2025-01-11] VITALS: BP 111/66
[2025-01-11 04:00] VITALS: BP 108/60
[2025-01-11 07:09] LABS: HEMATOCRIT 26.9 % (42.0-52.0); MEAN CELL VOLUME 93.4 fl (80.0-94.0); MEAN CORPUSCULAR HGB 28.8 pg (27.0-31.0); MEAN CORPUSCULAR HGB CONC 30.9 g/dl (33.0-37.0); MEAN PLATELET VOLUME 9.7 fl (9.6-12.3); PLATELET COUNT AUTOMATED 407 10*3/uL (130-400); RED BLOOD COUNT 2.88 10*6/uL (4.50-5.90); RED CELL DISTRI WIDTH 18.7 % (0-14.5); WHITE BLOOD COUNT 10.5 10*3/uL (4.8-10.8)
[2025-01-11 07:14] LABS: MANUAL DIFF REFLEX YES
[2025-01-11 07:57] LABS: BASOPHILS 1 % (0-1); PLATELET SUFFICIENCY HIGH (NORMAL); POLYCHROMASIA SLIGHT; TARGET CELLS FEW; TOTAL CELLS COUNTED 100 #CELLS
[2025-01-11 07:58] LABS: ROULEAUX SLIGHT; STOMATOCYTE FEW
[2025-01-11 08:00] VITALS: BP 99/59
[2025-01-11] MEDS ORDERED: Enoxaparin Sodium 40 MG/0.4 ML SYR SC SCH (10:00)
[2025-01-11 12:00] VITALS: BP 101/65
[2025-01-11 16:00] VITALS: BP 109/64
[2025-01-11 20:00] VITALS: BP 113/65
[2025-01-12] VITALS: BP 119/67
[2025-01-12 04:00] VITALS: BP 93/60
[2025-01-12 05:24] LABS: ALKALINE PHOSPHATASE 119 U/L (46-116); BUN 13 mg/dl (9-23); CHLORIDE 104 mmol/L (98-107); SGPT/ALT 32 U/L (5-49); TOTAL PROTEIN 8.1 gm/dL (6.0-8.0)
[2025-01-12 06:12] LABS: BASO % 0.1 % (0.0-1.0); EOS # 0.2 10*3/uL (0.0-0.4); EOS % 1.6 % (1.0-4.0); HEMATOCRIT 28.2 % (42.0-52.0); MEAN CELL VOLUME 92.8 fl (80.0-94.0); MEAN CORPUSCULAR HGB 28.6 pg (27.0-31.0); MEAN CORPUSCULAR HGB CONC 30.9 g/dl (33.0-37.0); MEAN PLATELET VOLUME 9.9 fl (9.6-12.3); MONO # 0.9 10*3/uL (0.1-1.0); MONO % 6.3 % (3.0-9.0); NEUT # 11.1 10*3/uL (2.3-7.9); NEUT % 80.1 % (47.0-73.0); PLATELET COUNT AUTOMATED 498 10*3/uL (130-400); RED BLOOD COUNT 3.04 10*6/uL (4.50-5.90); RED CELL DISTRI WIDTH 18.3 % (0-14.5); WHITE BLOOD COUNT 13.9 10*3/uL (4.8-10.8)
[2025-01-12 07:06] LABS: HBsAG SCREEN Negative (Negative); HCV Ab Non Reactive (Non Reactive); HEP B CORE Ab, IgM Negative (Negative)
[2025-01-12 08:00] VITALS: BP 105/66
[2025-01-12 16:00] VITALS: BP 100/62
[2025-01-12 20:00] VITALS: BP 90/50
[2025-01-12 23:16] LABS: BILIRUBIN Negative (Negative); BLOOD Negative (Negative); CLARITY Clear (Clear); COLOR Yellow (Yellow); GLUCOSE Negative (Negative); KETONE Negative (Negative); LEUKO ESTERASE 1+ (Negative); NITRITE Negative (Negative); PH 6.5 (4.5-8.0); SPECIFIC GRAVITY 1.015 (1.001-1.030); UROBILINOGEN 0.2 E.U./dl (0.0-1.0)
[2025-01-12 23:34] LABS: YEAST 1+
[2025-01-12 23:37] LABS: BACTERIA TRACE
[2025-01-13] VITALS: BP 97/60
[2025-01-13 04:00] VITALS: BP 103/68
[2025-01-13 06:08] LABS: HEMATOCRIT 29.4 % (42.0-52.0); MEAN CELL VOLUME 93.9 fl (80.0-94.0); MEAN CORPUSCULAR HGB 29.1 pg (27.0-31.0); MEAN PLATELET VOLUME 9.6 fl (9.6-12.3); PLATELET COUNT AUTOMATED 517 10*3/uL (130-400); RED BLOOD COUNT 3.13 10*6/uL (4.50-5.90); RED CELL DISTRI WIDTH 18.2 % (0-14.5); WHITE BLOOD COUNT 11.9 10*3/uL (4.8-10.8)
[2025-01-13 06:23] LABS: MANUAL DIFF REFLEX YES
[2025-01-13 07:14] LABS: PLATELET SUFFICIENCY HIGH (NORMAL); POLYCHROMASIA SLIGHT; TOTAL CELLS COUNTED 100 #CELLS
[2025-01-13 07:15] LABS: ROULEAUX SLIGHT
[2025-01-13 08:00] VITALS: BP 137/79
[2025-01-13 11:07] LABS: ACID FAST SPEC PROCESSING Concentration (.)
[2025-01-13 12:00] VITALS: BP 133/74
[2025-01-13 16:00] VITALS: BP 120/66
[2025-01-13 20:00] VITALS: BP 105/62
[2025-01-14] VITALS: BP 102/53
[2025-01-14 04:00] VITALS: BP 102/59
[2025-01-14 06:08] LABS: BASO % 0.2 % (0.0-1.0); EOS # 0.3 10*3/uL (0.0-0.4); MEAN CELL VOLUME 94.3 fl (80.0-94.0); MEAN CORPUSCULAR HGB 28.7 pg (27.0-31.0); MEAN CORPUSCULAR HGB CONC 30.4 g/dl (33.0-37.0); MEAN PLATELET VOLUME 9.3 fl (9.6-12.3); MONO # 0.9 10*3/uL (0.1-1.0); MONO % 10.5 % (3.0-9.0); NEUT # 5.6 10*3/uL (2.3-7.9); NEUT % 64.7 % (47.0-73.0); PLATELET COUNT AUTOMATED 529 10*3/uL (130-400); RED BLOOD COUNT 2.65 10*6/uL (4.50-5.90); RED CELL DISTRI WIDTH 17.5 % (0-14.5); WHITE BLOOD COUNT 8.6 10*3/uL (4.8-10.8)
[2025-01-14 08:00] VITALS: BP 105/75
[2025-01-14 12:00] VITALS: BP 125/34
[2025-01-14] MEDS ORDERED: FOAM BANDAGE 1 EACH BANDAGE T ONE (14:53)
[2025-01-14] MEDS ORDERED: FLUCONAZOLE 200 ML IV SCH (16:00)
[2025-01-14] MEDS ORDERED: ACETYLCYSTEINE 800 MG/4 ML VIAL NEB SCH (16:25)
[2025-01-14 17:46] VITALS: BP 143/71
[2025-01-14 20:00] VITALS: BP 134/68
[2025-01-15] VITALS (7 sets, daily range): BP systolic 95–131; BP diastolic 58–84
[2025-01-15] MEDS ORDERED: SODIUM CHLORIDE 0.9% 1,000 ML IV ONE (01:25)
[2025-01-15] MEDS ORDERED: ACETAMINOPHEN 500 MG TAB PEG ONE (02:00)
[2025-01-15 05:02] LABS: BUN 7 mg/dl (9-23); CHLORIDE 102 mmol/L (98-107); POTASSIUM 3.5 mmol/L (3.4-5.1)
[2025-01-15 06:13] LABS: BASO % 0.2 % (0.0-1.0); EOS # 0.2 10*3/uL (0.0-0.4); EOS % 1.9 % (1.0-4.0); HEMATOCRIT 25.9 % (42.0-52.0); MEAN CELL VOLUME 95.6 fl (80.0-94.0); MEAN CORPUSCULAR HGB 28.8 pg (27.0-31.0); MEAN CORPUSCULAR HGB CONC 30.1 g/dl (33.0-37.0); MEAN PLATELET VOLUME 9.4 fl (9.6-12.3); MONO # 0.8 10*3/uL (0.1-1.0); MONO % 6.1 % (3.0-9.0); NEUT # 9.7 10*3/uL (2.3-7.9); NEUT % 78.4 % (47.0-73.0); PLATELET COUNT AUTOMATED 562 10*3/uL (130-400); RED BLOOD COUNT 2.71 10*6/uL (4.50-5.90); RED CELL DISTRI WIDTH 17.6 % (0-14.5); WHITE BLOOD COUNT 12.4 10*3/uL (4.8-10.8)
[2025-01-15] MEDS ORDERED: AVYCAZ 2.5 GRA2.5 GM IV (11:21)
[2025-01-15] MEDS ORDERED: diazePAM 10 MG/2 ML SYR IV PRN (19:35)
[2025-01-15] MEDS ORDERED: Melatonin 5 MG TABLET PEG PRN (20:25)
[2025-01-16] VITALS: BP 109/58
[2025-01-16] MEDS ORDERED: GENTAMICIN SULFATE IV ONE (00:10)
[2025-01-16] MEDS ORDERED: DEXTROSE 5% IV ONE (00:10)
[2025-01-16 04:00] VITALS: BP 123/64
[2025-01-16 06:09] LABS: BASO % 0.1 % (0.0-1.0); EOS # 0.3 10*3/uL (0.0-0.4); EOS % 1.9 % (1.0-4.0); MEAN CELL VOLUME 96.3 fl (80.0-94.0); MEAN CORPUSCULAR HGB 29.3 pg (27.0-31.0); MEAN CORPUSCULAR HGB CONC 30.4 g/dl (33.0-37.0); MEAN PLATELET VOLUME 9.4 fl (9.6-12.3); MONO # 0.8 10*3/uL (0.1-1.0); MONO % 5.7 % (3.0-9.0); NEUT # 11.3 10*3/uL (2.3-7.9); PLATELET COUNT AUTOMATED 528 10*3/uL (130-400); RED CELL DISTRI WIDTH 17.7 % (0-14.5); WHITE BLOOD COUNT 13.9 10*3/uL (4.8-10.8)
[2025-01-16 08:00] VITALS: BP 111/54
[2025-01-16] MEDS ORDERED: Gentamicin Sulfate 80 MG/2 ML VIAL IV ONE (08:28)
[2025-01-16] MEDS ORDERED: DEXTROSE 5% 100 ML BAG IV ONE (08:28)
[2025-01-16] MEDS ORDERED: GENTAMICIN SULFATE IV SCH (10:00)
[2025-01-16] MEDS ORDERED: SODIUM CHLORIDE 0.9% IV SCH (10:00)
[2025-01-16 12:00] VITALS: BP 107/50
[2025-01-16] MEDS ORDERED: ISO GENTAM120 MG/100 IV (12:47)
[2025-01-16 16:00] VITALS: BP 113/47
[2025-01-16 21:00] VITALS: BP 132/69
[2025-01-16] MEDS ORDERED: ACETAMINOPHEN 325 MG TAB PO PRN (21:05)
[2025-01-17] VITALS: BP 102/55
[2025-01-17 04:00] VITALS: BP 131/75
[2025-01-17 04:36] LABS: BASO % 0.1 % (0.0-1.0); EOS # 0.3 10*3/uL (0.0-0.4); EOS % 2.2 % (1.0-4.0); MEAN CORPUSCULAR HGB 28.8 pg (27.0-31.0); MONO % 6.8 % (3.0-9.0); NEUT # 12.4 10*3/uL (2.3-7.9); NEUT % 80.9 % (47.0-73.0); PLATELET COUNT AUTOMATED 534 10*3/uL (130-400); WHITE BLOOD COUNT 15.3 10*3/uL (4.8-10.8)
[2025-01-17 04:51] LABS: ACT PARTIAL THROMBO TIME 29.3 SECONDS (20.0-32.1)
[2025-01-17 05:29] LABS: ALKALINE PHOSPHATASE 93 U/L (46-116); CHLORIDE 103 mmol/L (98-107); SGPT/ALT 15 U/L (5-49); TOTAL PROTEIN 7.6 gm/dL (6.0-8.0)
[2025-01-17 05:30] LABS: BUN < 5 mg/dl (9-23)
[2025-01-17] MEDS ORDERED: HEEL PROTECTOR DEVICE ONE ×2 (06:39)
[2025-01-17 08:00] VITALS: BP 151/84
[2025-01-17] MEDS ORDERED: SODIUM BICARBONATE 4.2% 5 ML VIAL ONE (10:56)
[2025-01-17 12:00] VITALS: BP 114/61
[2025-01-17 13:46] LABS: BF LYMPHOCYTES 32 %; BF MACROPHAGES 28 %; BF MESOTHELIALS 19 %; BF NEUTROPHILS 21 %
[2025-01-17] MEDS ORDERED: FOAM BANDAGE 1 EACH BANDAGE T ONE (14:09)
[2025-01-17 16:00] VITALS: BP 117/67
[2025-01-17] MEDS ORDERED: busPIRone Hydrochloride 10 MG TAB PEG SCH (16:00)
[2025-01-17] MEDS ORDERED: OXYCODONE HCL (IR) 5 MG TAB PEG PRN (17:10)
[2025-01-17] MEDS ORDERED: ACETYLCYSTEINE 800 MG/4 ML VIAL NEB SCH (18:00)
[2025-01-17 20:00] VITALS: BP 109/64
[2025-01-18] VITALS (8 sets, daily range): BP systolic 91–120; BP diastolic 54–77
[2025-01-18 05:31] LABS: BUN 6 mg/dl (9-23); CHLORIDE 102 mmol/L (98-107); POTASSIUM 3.9 mmol/L (3.4-5.1)
[2025-01-18 06:11] LABS: BASO % 0.2 % (0.0-1.0); EOS # 0.3 10*3/uL (0.0-0.4); EOS % 2.5 % (1.0-4.0); HEMATOCRIT 24.1 % (42.0-52.0); MEAN CORPUSCULAR HGB 29.5 pg (27.0-31.0); MEAN CORPUSCULAR HGB CONC 30.7 g/dl (33.0-37.0); MEAN PLATELET VOLUME 9.1 fl (9.6-12.3); MONO # 0.9 10*3/uL (0.1-1.0); MONO % 8.2 % (3.0-9.0); NEUT # 7.8 10*3/uL (2.3-7.9); NEUT % 74.3 % (47.0-73.0); PLATELET COUNT AUTOMATED 571 10*3/uL (130-400); RED BLOOD COUNT 2.51 10*6/uL (4.50-5.90); RED CELL DISTRI WIDTH 17.7 % (0-14.5); WHITE BLOOD COUNT 10.5 10*3/uL (4.8-10.8)
[2025-01-18] MEDS ORDERED: GENTAMICIN SULFATE IV SCH (10:54)
[2025-01-18] MEDS ORDERED: DEXTROSE 5% IV SCH (10:54)
[2025-01-18 16:00] LABS: BILIRUBIN Negative (Negative); BLOOD Negative (Negative); CLARITY Cloudy (Clear); COLOR Yellow (Yellow); GLUCOSE Negative (Negative); KETONE Negative (Negative); LEUKO ESTERASE Trace (Negative); NITRITE Negative (Negative); SPECIFIC GRAVITY 1.015 (1.001-1.030); UROBILINOGEN 0.2 E.U./dl (0.0-1.0)
[2025-01-18 16:20] LABS: BACTERIA TRACE; MUCOUS 1+; RBC 0-2 rbc/hpf (0-2)
[2025-01-18] MEDS ORDERED: VANCOMYCIN HCL 1,500 MG in SODIUM CHLORIDE 0.9% 500 ML IV ONE (23:15)
[2025-01-19] VITALS: BP 101/62
[2025-01-19 04:00] VITALS: BP 112/63
[2025-01-19 06:07] LABS: BASO % 0.1 % (0.0-1.0); EOS # 0.2 10*3/uL (0.0-0.4); EOS % 1.4 % (1.0-4.0); MEAN CELL VOLUME 94.3 fl (80.0-94.0); MEAN CORPUSCULAR HGB 29.1 pg (27.0-31.0); MEAN CORPUSCULAR HGB CONC 30.9 g/dl (33.0-37.0); MEAN PLATELET VOLUME 9.2 fl (9.6-12.3); MONO # 0.7 10*3/uL (0.1-1.0); MONO % 4.5 % (3.0-9.0); NEUT # 13.8 10*3/uL (2.3-7.9); NEUT % 85.8 % (47.0-73.0); PLATELET COUNT AUTOMATED 580 10*3/uL (130-400); RED BLOOD COUNT 2.44 10*6/uL (4.50-5.90); RED CELL DISTRI WIDTH 17.8 % (0-14.5)
[2025-01-19 06:31] LABS: ALKALINE PHOSPHATASE 110 U/L (46-116); BUN 9 mg/dl (9-23); CHLORIDE 101 mmol/L (98-107); POTASSIUM 4.2 mmol/L (3.4-5.1); SGPT/ALT 10 U/L (5-49); TOTAL PROTEIN 8.1 gm/dL (6.0-8.0)
[2025-01-19 08:00] VITALS: BP 116/65
[2025-01-19] MEDS ORDERED: Vancomycin Hydrochloride 1,000 MG VIAL IV ONE (09:21)
[2025-01-19] MEDS ORDERED: SODIUM CHLORIDE 0.9% 500 ML BAG IV ONE (09:21)
[2025-01-19] MEDS ORDERED: Vancomycin Hydrochloride 500 MG VIAL IV ONE (09:21)
[2025-01-19 12:00] VITALS: BP 92/48
[2025-01-19] MEDS ORDERED: VANCOMYCIN/WATER FOR INJ (PEG) 300 ML IV SCH (12:00)
[2025-01-19] MEDS ORDERED: ACETYLCYSTEINE 800 MG/4 ML VIAL NEB SCH (18:35)
[2025-01-20 04:00] VITALS: BP 101/68
[2025-01-20 04:35] LABS: BASO % 0.1 % (0.0-1.0); EOS # 0.2 10*3/uL (0.0-0.4); EOS % 1.8 % (1.0-4.0); HEMATOCRIT 23.1 % (42.0-52.0); MEAN CELL VOLUME 96.7 fl (80.0-94.0); MEAN CORPUSCULAR HGB 29.3 pg (27.0-31.0); MEAN CORPUSCULAR HGB CONC 30.3 g/dl (33.0-37.0); MEAN PLATELET VOLUME 9.1 fl (9.6-12.3); MONO # 1.2 10*3/uL (0.1-1.0); NEUT % 72.6 % (47.0-73.0); PLATELET COUNT AUTOMATED 592 10*3/uL (130-400); RED BLOOD COUNT 2.39 10*6/uL (4.50-5.90); RED CELL DISTRI WIDTH 17.6 % (0-14.5); WHITE BLOOD COUNT 11.1 10*3/uL (4.8-10.8)
[2025-01-20 04:54] LABS: BUN 8 mg/dl (9-23); CHLORIDE 104 mmol/L (98-107)
[2025-01-20 06:00] VITALS: BP 101/68
[2025-01-20 12:00] VITALS: BP 100/48
[2025-01-20 14:07] LABS: ACID FAST SPEC PROCESSING Concentration (.)
[2025-01-20 15:43] LABS: BF LYMPHOCYTES 4 %; BF NEUTROPHILS 84 %
[2025-01-20 15:44] LABS: BF MONOCYTES 12 %
[2025-01-20 16:00] VITALS: BP 106/56
[2025-01-20 20:00] VITALS: BP 132/84
[2025-01-20] MEDS ORDERED: Vancomycin Hydrochloride 750 MG in SODIUM CHLORIDE 0.9% 250 ML IV SCH (22:00)
[2025-01-21] VITALS (12 sets, daily range): BP systolic 102–142; BP diastolic 62–98
[2025-01-21 04:24] LABS: HEMATOCRIT 22.8 % (42.0-52.0); MEAN CELL VOLUME 97.4 fl (80.0-94.0); MEAN CORPUSCULAR HGB 29.1 pg (27.0-31.0); MEAN CORPUSCULAR HGB CONC 29.8 g/dl (33.0-37.0); MEAN PLATELET VOLUME 8.9 fl (9.6-12.3); PLATELET COUNT AUTOMATED 566 10*3/uL (130-400); RED BLOOD COUNT 2.34 10*6/uL (4.50-5.90); RED CELL DISTRI WIDTH 17.2 % (0-14.5); WHITE BLOOD COUNT 8.1 10*3/uL (4.8-10.8)
[2025-01-21 04:26] LABS: MANUAL DIFF REFLEX YES
[2025-01-21 04:45] LABS: BUN 8 mg/dl (9-23); CHLORIDE 103 mmol/L (98-107); POTASSIUM 3.9 mmol/L (3.4-5.1)
[2025-01-21 04:48] LABS: ACANTHOCYTES FEW; PLATELET SUFFICIENCY HIGH (NORMAL); POLYCHROMASIA SLIGHT; TOTAL CELLS COUNTED 100 #CELLS
[2025-01-21 04:49] LABS: OVALOCYTES FEW
[2025-01-21] MEDS ORDERED: SODIUM CHLORIDE 0.9% 500 ML IV SCH (07:50)
[2025-01-21 12:53] LABS: BASO % 0.3 % (0.0-1.0); EOS # 0.2 10*3/uL (0.0-0.4); EOS % 1.8 % (1.0-4.0); HEMATOCRIT 33.9 % (42.0-52.0); MEAN CELL VOLUME 94.4 fl (80.0-94.0); MEAN CORPUSCULAR HGB CONC 30.7 g/dl (33.0-37.0); MONO # 0.7 10*3/uL (0.1-1.0); MONO % 5.7 % (3.0-9.0); NEUT # 9.2 10*3/uL (2.3-7.9); NEUT % 79.5 % (47.0-73.0); PLATELET COUNT AUTOMATED 597 10*3/uL (130-400); RED BLOOD COUNT 3.59 10*6/uL (4.50-5.90); RED CELL DISTRI WIDTH 16.8 % (0-14.5); WHITE BLOOD COUNT 11.6 10*3/uL (4.8-10.8)
[2025-01-21] MEDS ORDERED: VANC1PIG IV (23:31)
[2025-01-21] MEDS ORDERED: FLUONAZOLE200 MG PO (23:31)
[2025-01-22] VITALS: BP 104/69
[2025-01-22 04:00] VITALS: BP 103/64
[2025-01-22 05:59] LABS: ALKALINE PHOSPHATASE 90 U/L (46-116); BUN 8 mg/dl (9-23); CHLORIDE 106 mmol/L (98-107); SGPT/ALT 15 U/L (5-49); TOTAL PROTEIN 7.9 gm/dL (6.0-8.0)
[2025-01-22 06:34] LABS: BASO % 0.4 % (0.0-1.0); EOS # 0.3 10*3/uL (0.0-0.4); EOS % 3.3 % (1.0-4.0); HEMATOCRIT 27.3 % (42.0-52.0); MEAN CELL VOLUME 92.9 fl (80.0-94.0); MEAN CORPUSCULAR HGB 28.9 pg (27.0-31.0); MEAN CORPUSCULAR HGB CONC 31.1 g/dl (33.0-37.0); MEAN PLATELET VOLUME 9.2 fl (9.6-12.3); MONO # 0.6 10*3/uL (0.1-1.0); MONO % 7.9 % (3.0-9.0); NEUT # 5.5 10*3/uL (2.3-7.9); NEUT % 70.6 % (47.0-73.0); PLATELET COUNT AUTOMATED 619 10*3/uL (130-400); RED BLOOD COUNT 2.94 10*6/uL (4.50-5.90); RED CELL DISTRI WIDTH 17.2 % (0-14.5); WHITE BLOOD COUNT 7.8 10*3/uL (4.8-10.8)
[2025-01-22 08:00] VITALS: BP 105/61
[2025-01-22 16:00] VITALS: BP 151/88
[2025-01-22] MEDS ORDERED: ATROPINE SULFATE 1 MG/10 ML SYR IV ONE (19:36)
[2025-01-24] MEDS ORDERED: EPINEPHrine Hydrochloride 1 MG/10 ML SYR IV ONE (07:05)
== END 2025-01-23 01:45 | DRG 870 ==
LOC: ED 18:01 → EDHOLD 22:17 → ICCU 22:17
PROVIDERS: Emergency Medicine; Internal Medicine; Internal Medicine Critical Care Medicine; Internal Medicine Infectious Disease; Radiology Diagnostic Radiology; Student in an Organized Health Care Education/Training Program; ADMIT Internal Medicine; ATTEND Internal Medicine
PROC: 5A1955Z Respiratory Ventilation, Greater than 96 Consecutive Hours (ICD-10-PCS; 2025-01-06)
PROC: 0BC18ZZ Extirpation of Matter from Trachea, Via Natural or Artificial Opening Endoscopic (ICD-10-PCS; 2025-01-12)
PROC: 0BC98ZZ Extirpation of Matter from Lingula Bronchus, Via Natural or Artificial Opening Endoscopic (ICD-10-PCS; 2025-01-12)
PROC: 0BC48ZZ Extirpation of Matter from Right Upper Lobe Bronchus, Via Natural or Artificial Opening Endoscopic (ICD-10-PCS; 2025-01-12)
PROC: 0BC88ZZ Extirpation of Matter from Left Upper Lobe Bronchus, Via Natural or Artificial Opening Endoscopic (ICD-10-PCS; 2025-01-12)
PROC: 0BC58ZZ Extirpation of Matter from Right Middle Lobe Bronchus, Via Natural or Artificial Opening Endoscopic (ICD-10-PCS; 2025-01-12)
PROC: 0BC38ZZ Extirpation of Matter from Right Main Bronchus, Via Natural or Artificial Opening Endoscopic (ICD-10-PCS; 2025-01-12)
PROC: 0BC78ZZ Extirpation of Matter from Left Main Bronchus, Via Natural or Artificial Opening Endoscopic (ICD-10-PCS; 2025-01-12)
PROC: 0BC68ZZ Extirpation of Matter from Right Lower Lobe Bronchus, Via Natural or Artificial Opening Endoscopic (ICD-10-PCS; 2025-01-12)
PROC: 0BCB8ZZ Extirpation of Matter from Left Lower Lobe Bronchus, Via Natural or Artificial Opening Endoscopic (ICD-10-PCS; 2025-01-12)
PROC: 05H733Z Insertion of Infusion Device into Right Axillary Vein, Percutaneous Approach (ICD-10-PCS; 2025-01-15)
PROC: B54MZZA Ultrasonography of Right Upper Extremity Veins, Guidance (ICD-10-PCS; 2025-01-15)
PROC: 0W9930Z Drainage of Right Pleural Cavity with Drainage Device, Percutaneous Approach (ICD-10-PCS; 2025-01-17)
PROC: 0B998ZZ Drainage of Lingula Bronchus, Via Natural or Artificial Opening Endoscopic (ICD-10-PCS; 2025-01-19)
PROC: 0B948ZZ Drainage of Right Upper Lobe Bronchus, Via Natural or Artificial Opening Endoscopic (ICD-10-PCS; 2025-01-19)
PROC: 0B988ZZ Drainage of Left Upper Lobe Bronchus, Via Natural or Artificial Opening Endoscopic (ICD-10-PCS; 2025-01-19)
PROC: 0B918ZZ Drainage of Trachea, Via Natural or Artificial Opening Endoscopic (ICD-10-PCS; 2025-01-19)
PROC: 0B958ZZ Drainage of Right Middle Lobe Bronchus, Via Natural or Artificial Opening Endoscopic (ICD-10-PCS; 2025-01-19)
PROC: 0B938ZZ Drainage of Right Main Bronchus, Via Natural or Artificial Opening Endoscopic (ICD-10-PCS; 2025-01-19)
PROC: 0B978ZZ Drainage of Left Main Bronchus, Via Natural or Artificial Opening Endoscopic (ICD-10-PCS; 2025-01-19)
PROC: 0B968ZZ Drainage of Right Lower Lobe Bronchus, Via Natural or Artificial Opening Endoscopic (ICD-10-PCS; 2025-01-19)
PROC: 0B9B8ZZ Drainage of Left Lower Lobe Bronchus, Via Natural or Artificial Opening Endoscopic (ICD-10-PCS; 2025-01-19)
PROC: 30233N1 Transfusion of Nonautologous Red Blood Cells into Peripheral Vein, Percutaneous Approach (ICD-10-PCS; principal; 2025-01-21)
DX: A41.9 Sepsis, unspecified organism (principal); J15.69 Pneumonia due to other Gram-negative bacteria; J69.0 Pneumonitis due to inhalation of food and vomit; J96.21 Acute and chronic respiratory failure with hypoxia; L89.154 Pressure ulcer of sacral region, stage 4; L89.314 Pressure ulcer of right buttock, stage 4; J93.9 Pneumothorax, unspecified; M86.68 Other chronic osteomyelitis, other site; I50.32 Chronic diastolic (congestive) heart failure; J98.11 Atelectasis; Z99.11 Dependence on respirator [ventilator] status; J95.851 Ventilator associated pneumonia; L89.616 Pressure-induced deep tissue damage of right heel; R13.12 Dysphagia, oropharyngeal phase; X58.XXXD Exposure to other specified factors, subsequent encounter; B37.9 Candidiasis, unspecified; B96.5 Pseudomonas (aeruginosa) (mallei) (pseudomallei) as the cause of diseases classified elsewhere; G40.909 Epilepsy, unspecified, not intractable, without status epilepticus; E87.5 Hyperkalemia; R73.9 Hyperglycemia, unspecified; D53.9 Nutritional anemia, unspecified; D50.9 Iron deficiency anemia, unspecified; F41.9 Anxiety disorder, unspecified; R65.20 Severe sepsis without septic shock; B96.1 Klebsiella pneumoniae [K. pneumoniae] as the cause of diseases classified elsewhere; S06.2XAD Diffuse traumatic brain injury with loss of consciousness status unknown, subsequent encounter; Z93.3 Colostomy status; Z79.51 Long term (current) use of inhaled steroids; Z93.0 Tracheostomy status; Z79.899 Other long term (current) drug therapy; Z74.01 Bed confinement status